=== PATIENT | female | born 1960 | race Caucasian/White ===

== ENCOUNTER 2021-03-10 16:40 | Outpatient (CLI) | payer OTHER | END 2021-03-10 16:41 | disposition home or self-care (01) | LOC: NAV RAD 16:40 | PROVIDERS: ATTEND Family Medicine | DX: J06.9 Acute upper respiratory infection, unspecified (principal) | CPT/HCPCS: 71046 ==

== ENCOUNTER 2021-03-18 11:25 | Emergency (ER) | payer OTHER | END 2021-03-18 11:55 | disposition home or self-care (01) | LOC: NAV ERS 11:25 | DX: T78.40XA Allergy, unspecified, initial encounter (principal); I10 Essential (primary) hypertension; Z87.891 Personal history of nicotine dependence; Z79.899 Other long term (current) drug therapy | CPT/HCPCS: 99283 ==

== ENCOUNTER 2021-06-07 02:04 | Emergency (ER) | payer OTHER | END 2021-06-07 03:15 | disposition home or self-care (01) | LOC: NAV ERS 02:04 | DX: S20.212A Contusion of left front wall of thorax, initial encounter (principal); Z87.891 Personal history of nicotine dependence; I10 Essential (primary) hypertension; W17.89XA Other fall from one level to another, initial encounter ==

== ENCOUNTER 2024-02-20 14:14 | Outpatient (CLI) | payer MEDICARE | END 2024-02-20 14:15 | disposition home or self-care (01) | LOC: NAV RAD 14:14 | PROVIDERS: ATTEND Nurse Practitioner Family | DX: M25.512 Pain in left shoulder (principal); R13.10 Dysphagia, unspecified; M75.32 Calcific tendinitis of left shoulder ==